=== PATIENT | female | born 1950 | race Caucasian/White ===

== ENCOUNTER 2018-09-11 01:22 | Outpatient (CLI) | payer OTHER, SELFPAY ==
[2018-09-11 10:59] LABS: HCT 42.2 % (36.0-46.0); HGB 14.1 g/dL (12.0-15.5); Mean Corp. HGB Concentration 33.4 g/dL (32.0-36.0); Mean Corpuscular Hemoglobin 32.3 pg (27.0-33.0); Mean Corpuscular Volume 96.6 fL (80-95); Platelet Count 289 x1000/uL (130-400); RBC 4.37 m/cumm (4.00-5.20); RBC Distribution Width 12.5 % (11.7-14.6); White Blood Cell Count 5.96 k/cumm (4.4-10.8)
[2018-09-11 11:24] LABS: ALT 18 U/L (12-78); AST 8 U/L (15-37); Albumin 3.6 g/dL (3.4-5.0); Alkaline Phosphatase 56 U/L (46-116); Anion Gap 8.9 mmol/L (3-11); BUN 19 mg/dL (7-18); Bilirubin, Total 0.5 mg/dL (0.2-1.0); CO2 26.1 mmol/L (21.0-32.0); CREATININE 0.76 mg/dL (0.55-1.02); Calcium 8.6 mg/dL (8.5-10.1); Chloride 108 mmol/L (98-107); Cholesterol 209 mg/dL (50-200); Glucose 96 mg/dL (70-100); HDL Cholesterol 57 mg/dL (40-60); LDL CHOLESTEROL 145 mg/dL (<100); Potassium 4.1 mmol/L (3.5-5.1); Sodium 143 mmol/L (136-145); TSH (W/Ref FT4) 0.72 uIU/mL (0.358-3.74); Total Protein 6.3 g/dL (6.4-8.2); Triglyceride 60 mg/dL (30-150)
== END 2018-09-11 01:42 ==
PROVIDERS: PCP Family Medicine; Visit Provider Family Medicine
DX: I10 Essential (primary) hypertension (principal); E05.00 Thyrotoxicosis with diffuse goiter without thyrotoxic crisis or storm
CPT/HCPCS: 36415; 80053; 80061; 83721; 85027; 84443

== ENCOUNTER 2019-05-21 14:43 | Emergency (ER) | payer OTHER, SELFPAY ==
[2019-05-21 14:47] VITALS: BP 145/80; PULSE 82; RESP 16; TEMP 36.5; O2SAT 95
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
--- NOTE | 2019-05-21 15:54 | DI.RAD_ITS ---
SYMPTOMS/DIAGNOSIS: BACK PAIN, L3-5 TENDERNESS LUMBAR SPINE: Comparison is made with November,. There is a stable mild L1 compression fracture. No additional fractures are seen. The alignment appears normal. There are degenerative disc changes, greatest at L2-3 where there is also slight scoliosis. IMPRESSION: Stable mild L1 compression fracture. No new abnormality.
[2019-05-21 16:33] VITALS: BP 145/80; PULSE 82; RESP 16; TEMP 36.5; O2SAT 95
== END 2019-05-21 16:32 | disposition home or self-care (01) ==
PROVIDERS: Emergency Provider Physician Assistant; PCP Family Medicine
DX: M54.5 Low back pain (principal); M48.52XA Collapsed vertebra, not elsewhere classified, cervical region, initial encounter for fracture
CPT/HCPCS: 99283; 72110; 99282

== ENCOUNTER 2019-07-30 00:47 | Outpatient (CLI) | payer OTHER, SELFPAY ==
[2019-07-30 11:23] LABS: ALT 20 U/L (14-59); AST 13 U/L (15-37); Albumin 3.6 g/dL (3.4-5.0); Alkaline Phosphatase 64 U/L (46-116); Anion Gap 7.1 mmol/L (3-11); BUN 20 mg/dL (7-18); Bilirubin, Total 0.3 mg/dL (0.2-1.0); CO2 27.9 mmol/L (21.0-32.0); CREATININE 0.88 mg/dL (0.55-1.02); Calcium 8.4 mg/dL (8.5-10.1); Chloride 110 mmol/L (98-107); Glucose 93 mg/dL (70-100); Potassium 4.9 mmol/L (3.5-5.1); Sodium 145 mmol/L (136-145); Total Protein 6.4 g/dL (6.4-8.2)
[2019-07-30 13:36] LABS: TSH (W/Ref FT4) 0.48 uIU/mL (0.36-3.74)
[2019-08-01 05:47] LABS: Vitamin D 25 Total 54.6 ng/ml (30-100)
== END 2019-07-30 01:07 ==
PROVIDERS: PCP Family Medicine; Visit Provider Family Medicine
DX: F32.9 Major depressive disorder, single episode, unspecified (principal); M81.0 Age-related osteoporosis without current pathological fracture; E05.00 Thyrotoxicosis with diffuse goiter without thyrotoxic crisis or storm
CPT/HCPCS: 36415; 80053; 82306; 84443

== ENCOUNTER 2019-12-03 01:31 | Outpatient (CLI) | payer OTHER, SELFPAY ==
--- NOTE | 2019-12-03 16:27 | DI.DEXA_ITS ---
EXAM: XR DEXA BONE DENSITY W/WO DEE INDICATION: osteoporosis M81.0, H/O FX IN 2018 COMPARISON: XR lumbar spine complete from 05/21/2019 TECHNIQUE: 2D digital imaging was performed. FINDINGS: The lateral view of the spine shows no compression deformities. Evaluation of the left hip shows a total T-score of -3.4 and a Z-score of -1.8. This is consistent w ith osteoporosis and a high fracture risk. This compares to a total T-score of -3.1 from 2018. Evaluation of the lumbar spine shows a total T-score of -3.7 and a Z-score of -1.5. This is also con sistent with osteoporosis and a high fracture risk. This compares to a total T-score of -3.8 from . IMPRESSION: Osteoporosis.
== END 2019-12-03 01:51 ==
PROVIDERS: PCP Family Medicine; Visit Provider Family Medicine
DX: M81.0 Age-related osteoporosis without current pathological fracture (principal)
CPT/HCPCS: 77080

== ENCOUNTER 2020-09-17 13:32 | Outpatient (CLI) | payer OTHER, SELFPAY ==
--- NOTE | 2020-09-17 10:45 | DI.RAD_ITS ---
EXAM: XR THORACIC SPINE COMPLETE CLINICAL HISTORY: Pain after lifting, back pain with radiation, M54.9 dorsalgia TECHNIQUE: COMPARISON: No exams were available for comparison FINDINGS: Two views were obtained. There are mild anterior compression fractures of what appear to be the vert ebral bodies of T7 and T8 with mild loss of height anteriorly, these mild compression fractures are o f uncertain age. There is also mild anterior compression fracture of L1 vertebral body. No additional significant findings apart from mild biconvex thoracolumbar scoliosis and mild degenera tive changes of the thoracic and upper lumbar Spine. IMPRESSION: Mild anterior compression fractures, T7, T8, and L1, fractures are of uncertain age. RADIATION DOSE DELIVERED: Total DLP
== END 2020-09-17 13:52 ==
PROVIDERS: PCP Family Medicine; Visit Provider Nurse Practitioner Family
DX: M48.54XA Collapsed vertebra, not elsewhere classified, thoracic region, initial encounter for fracture (principal); M48.56XA Collapsed vertebra, not elsewhere classified, lumbar region, initial encounter for fracture
CPT/HCPCS: 72072

== ENCOUNTER 2021-04-02 01:39 | Outpatient (CLI) | payer OTHER, SELFPAY ==
[2021-04-02 13:10] LABS: Calculated LDL 161 mg/dL (<100); Cholesterol 234 mg/dL (<200); HDL Cholesterol 60 mg/dL (40-60); Triglyceride 68 mg/dL (<150)
[2021-04-02 13:42] LABS: TSH 0.55 uIU/mL (0.36-3.74)
== END 2021-04-02 01:40 | disposition home or self-care (01) ==
LOC: LOS 01:39
PROVIDERS: Family Medicine; Nurse Practitioner Family; PCP Family Medicine; Visit Provider Nurse Practitioner
DX: E78.5 Hyperlipidemia, unspecified (principal); E05.00 Thyrotoxicosis with diffuse goiter without thyrotoxic crisis or storm
CPT/HCPCS: 36415; 80061; 84443

== ENCOUNTER 2021-04-13 01:34 | Outpatient (CLI) | payer OTHER, SELFPAY ==
--- NOTE | 2021-04-13 08:30 | DI.MAMMO_ITS ---
Exam(s) MAMMO SCREENING EXAM: MAMMO SCREENING CLINICAL HISTORY: screening mammo Z12.39 TECHNIQUE: Mammograms were interpreted according to the usual protocol including computer analysis w Disconnect CAD system, tomosynthesis and C-view imaging. COMPARISON: 2012 through 2018 FINDINGS: The breasts are composed of heterogeneously dense fibroglandular densities, Breast Density category C . No suspicious masses or suspicious microcalcifications are seen. Stable circumscribed nodule medial subareolar left breast. Vascular calcifications. No skin thickening or abnormal axillary lymph nodes are seen. There has been no significant change from prior exams. IMPRESSION: BI-RADS Cat 2 - Benign Findings Yearly screening mammography is recommended. Breast Density Category C, heterogeneously Dense. The mammogram demonstrates the patient's breast tissue is dense. Dense breast tissue is very common a nd is not abnormal but dense breast tissue can make it harder to find cancer on a mammogram. Also, de nse breast tissue may increase breast cancer risk. This information about the result of the mammogram report was provided to the patient to raise their awareness. Use this report when you speak with the patient about their risks for breast cancer, which includes their family history. At that time, you may recommend additional screening tests (Ultrasound or MRI) as they might be useful based on their r isk. A negative radiographic report should not delay biopsy if a dominant or clinically suspicious mass is present. Up to ten percent of cancers are not identified on mammography. A negative report may reinforce clinical impression. Adenosis and dense breasts may obscure an underlying neoplasm. False positive reports average 6 to 10%.
== END 2021-04-13 01:54 ==
PROVIDERS: PCP Nurse Practitioner; Visit Provider Nurse Practitioner
DX: Z12.31 Encounter for screening mammogram for malignant neoplasm of breast (principal)
CPT/HCPCS: 77063; 77067

== ENCOUNTER 2021-08-25 16:12 | Emergency (ER) | payer OTHER, SELFPAY ==
[2021-08-25 16:15] VITALS: BP 167/82; PULSE 91; RESP 16; TEMP 37.2; O2SAT 99
--- NOTE | 2021-08-25 17:00 | DI.RAD_ITS ---
Exam(s) XR THORACIC SPINE COMPLETE EXAM: XR THORACIC SPINE COMPLETE CLINICAL HISTORY: mid upper back pain, r/o fracture. TECHNIQUE: 2D digital imaging was performed of the thoracic spine. Views were obtained. AP, swimm er's and lateral views were obtained. COMPARISON: CR XR THORACIC SPINE COMPLETE from 09/17/2020 FINDINGS: BONES: There is stable old compression deformities of T7, T8 and L1. No acute fracture are identifie d. The bones are osteopenic. The vertebral bodies and posterior elements are unremarkable. DISKS:There is a very mild S-type thoracolumbar scoliosis. Interverebral disc spaces are maintained. SOFT TISSUE: Visualized lungs are clear. IMPRESSION: 1. No acute fractures or subluxations in the thoracic spine. 2. Stable old T7, T8 and L1 compression deformities. DATA REPOSITORY: RADIATION DOSE DELIVERED:
--- NOTE | 2021-08-25 17:10 | ED.GENADUL_ITS ---
Discharge Plan Disposition Patient Disposition: HOME Condition: Stable Discharge Details Clinical Impression: Acute thoracic myofascial strain Primary Care Provider: Lacy Silva ED Provider: Linda Dumas Home Meds and New Rx's Prescriptions: New methocarbamol 500 mg tablet 500 mg PO Q6H PRN (Reason: muscle spasm) Qty: 14 RF: 0 Continued [facility] PO DAILY RF: 0 Osteo [facility] Health PO DAILY RF: 0 SeroPlus PO DAILY RF: 0 ascorbic acid (vitamin C) 1,000 MG tablet 1,000 mg PO DAILY RF: 0 One-Per-Day [place]-3 1 EACH capsule,delayed release(DR/EC) 600 - 1,200 mg PO as directed RF: 0 cholecalciferol (vitamin D3) 25 mcg (1,000 unit) capsule 5,000 unit PO DAILY RF: 0 cyanocobalamin (vitamin B-12) [Vitamin B-12] 1,000 mcg tablet 2,000 mcg PO DAILY RF: 0 escitalopram oxalate [Lexapro] 10 mg tablet 10 mg PO DAILY Qty: 90 RF: 3 Bone Essentials 166.75 mg- 166.75 unit Capsule 1 tab PO ONCE RF: 0 Discharge Instructions Instructions: Thoracic Back Strain (ED) Additional Instructions: Alternate ice and heat to the affected area(s) several times daily for 20 minutes at a time. Alternate tylenol and motrin as needed and directed for pain. A prescription for muscle relaxer was sent electronically to your pharmacy. Follow-up with your primary care doctor in 1 week. Return to the emergency department with any worsening or new concerning symptoms such as worsening pain, extremity weakness or numbness, chest pain, difficulty breathing or any other concerns. Discharge Data Discharge Date/Time-TO BE ENTERED AT DEPARTURE: 08/25/21 19:27 Discharge Physician: Linda Dumas Medical Decision Making 71yo F with a history of T7 and T8 compression fractures in August 2020 presents with midline upper back pain similar to pain she had with her thoracic compression fractures since his Patient appears somewhat uncomfortable but nontoxic. She has tenderness to palpation to her midline thoracic spine. No significant paraspinal tenderness. Neurovascularly intact. No focal deficits. No overlying signs of trauma or cellulitis. Patient took Tylenol and ibuprofen prior to arrival and is declining any additional pain medication. She states she is mainly concerned about repeat T- spine compression fractures. Will obtain a thoracic spine x-ray. X-rays reviewed and negative for acute findings. Patient again denies any chest or abdominal pain or difficulty breathing and states her pain feels similar to when she had her thoracic compression fractures last year. She was offered CT imaging but declines. Her pain is reproducible with palpation and movement and appears musculoskeletal. History and presentation does not appear consistent with ACS, PE, dissection or disc herniation. Discussed that her symptoms could be due to muscular strain in the setting of osteoporosis and chronic pain related to her old compression fractures. Patient advised to follow-up with her PCP for reevaluation. A prescription for methocarbamol was sent electronically to her pharmacy. Usual and customary return precautions given prior to discharge. Medical Records Medical records reviewed: Yes I reviewed the patient's medical records. Imaging Data Radiologic Study: Radiologist's impression: XR Thoracic Spine Exam date and time: 08/25/2021 5:12 PM Age: 71 years old Clinical indication: Pain in thoracic spine; Patient HX: Mid to upper back pain R/O fracture; Additional info: Aoi t7 t8 patient has had prior compression FX TECHNIQUE: Imaging protocol: XR of the thoracic spine. Views: 3 views. COMPARISON: CR XR THORACIC SPINE COMPLETE 09/17/2020 11:06 AM FINDINGS: Bones/joints: There is mild rightward curvature of the thoracic and lumbar spines as seen on AP view. Again seen is grossly stable anterior height loss of the T7 and T8 vertebral bodies. There is stable mild anterior height loss of the L1 vertebral body. Otherwise, vertebral body heights are well maintained. There is accentuation of the normal thoracic kyphosis. No definite acute osseous injury or underlying osseous mass. Soft tissues: Unremarkable. IMPRESSION: 1. Stable study. 2. Anterior height loss of the T7, T8 and L1 vertebral bodies consistent with old compression fractures. Lab Data Lab results reviewed: Yes I reviewed the patient's lab results. HPI General Mode of arrival: ambulatory . Date/Time Provider Initiated Documentation: 08/25/21 16:21 . Limitations to Documentation: no limitations . Information obtained by: patient . HPI Narrative: Pt is a 71yo F with a history of T7 and T8 compression fractures in August 2020 who presents to the ED w/ a c/o midline upper back pain since this morning. Patient states she was carrying a few bags yesterday approximately 30 pounds each which may have caused an injury but she denies any acute pain at that time. She states her initial injury in August 2020 resulted from carrying a heavy object awkwardly. She states her friend who works in physical therapy pressed on her back today which caused some relief of her pain. She states she took ibuprofen and Tylenol today with some relief. She states she is mainly concerned that she is a new fracture in this area today. She denies any radiation of pain or numbness in her arms or legs. Related Data Home Medications Medication Instructions Recorded Confirmed ascorbic acid (vitamin C) 1,000 mg PO DAILY 07/06/13 08/25/21 One-Per-Day [place]-3 600 - 1,200 mg PO as directed 11/19/15 08/25/21 Bone Essentials 1 tab PO ONCE 05/21/19 09/17/20 [facility] PO DAILY 10/19/20 10/19/20 [facility]o Bone Health PO DAILY 10/19/20 10/19/20 SeroPlus PO DAILY 10/19/20 10/19/20 cholecalciferol (vitamin D3) 25 5,000 unit PO DAILY cap 10/19/20 08/25/21 mcg (1,000 unit) capsule cyanocobalamin (vitamin B-12) 2,000 mcg PO DAILY tab 10/19/20 08/25/21 1,000 mcg tablet escitalopram oxalate 10 mg tablet 10 mg PO DAILY #90 tab-cap 11/09/20 08/25/21 methocarbamol 500 mg PO Q6H PRN #14 tab 08/25/21 Previous Rx's Medication Instructions Recorded escitalopram oxalate 10 mg tablet 10 mg PO DAILY #90 tab-cap 11/09/20 methocarbamol 500 mg PO Q6H PRN #14 tab 08/25/21 Allergies Allergy/AdvReac Type Severity Reaction Status Date / Time gluten Allergy Severe SWELLING Verified 08/25/21 16:21 lactose AdvReac Unknown INTOLERANT Verified 08/25/21 16:21 EGG WHITE AdvReac Unknown PUTS HER Uncoded 08/25/21 16:21 TO SLEEP General Stated Complaint: Nk/Back Pain EILEEN: 3 Review of Systems All systems reviewed & are unremarkable except as noted in HPI and below Constitutional Constitutional: Reports as per HPI, Denies chills and Denies fever(s) Eyes Eyes: Denies blurry vision ENT Ears, Nose, Mouth, and Throat: Denies dizziness, Denies sore throat and Denies throat swelling Cardiovascular Cardiovascular: Denies chest pain and Denies dyspnea Respiratory Respiratory: Denies cough and Denies dyspnea Gastrointestinal Gastrointestinal: Denies abdominal pain, Denies diarrhea and Denies vomiting Genitourinary Genitourinary: Denies hematuria and Denies dysuria Musculoskeletal Musculoskeletal: Reports back pain and Denies numbness Integumentary/Breasts Skin/Breast: Denies lesions and Denies rash Neurologic Neurologic: Denies dizziness, Denies localized weakness and Denies numbness Allergic/Immunologic Allergic/Immunologic: Denies throat swelling [facility] Medical History (Updated 08/25/21 @ 19:11 by Linda Dumas DO) Back pain with radiation Chronic low back pain Compression fracture of lumbar vertebra with routine healing (11/23/15) History of Graves' disease (12/05/17) History of vertebral compression fracture (12/05/17) Hyperlipidemia Surgical History (Updated 04/06/21 @ 09:43 by Lacy Silva NP) History of bilateral ligation of fallopian tubes Ligation of fallopian tube (~1975) Family History (Updated 04/12/21 @ 09:48 by Rani Rod) Mother , age 44 Breast cancer Father , age 84 Heart disease Colon cancer Brother Heart disease Depression Brother Essential hypertension Depression Maternal Grandfather Depression Alcohol abuse Paternal Grandfather , in his 80s No problems noted. Maternal Grandmother , age 75 No problems noted. Paternal Grandmother , age 95 Heart disease Stroke Son No problems noted. Daughter Melanoma Daughter No problems noted. Daughter Depression Alcohol abuse Social History (Updated 04/12/21 @ 09:47 by Rani Rod) Smoking/Tobacco Use Status: Never Second Hand Exposure: Yes Smoking risk assessment performed?: Yes Alcohol Intake: current Alcohol Intake frequency: a few times a week Alcohol type: hard liquor Drug use: Never Substance use type: does not use Caregiver/Support person: No Household members: none Housing: house Communication Needs: None Do you need help understanding health information?: Never Pets and animals: Yes Pets and animals: cat(s) and dog(s) Sexually active: No Do you think of yourself as: straight/heterosexual Current gender identity: female What is your relationship status?: How often do you talk on the phone with friends or family?: decline to answer How often do you get together with friends or relatives?: three or more times per week How often do you attend spiritism or temple services?: decline to answer Do you belong to any clubs or organized social groups?: no Panel score (0-1 are the most socially isolated patients): 1 What type of physical activity do you participate in: walking and other Details: Pilates, snowshoeing Duration: 30-45 minutes/day Frequency: 5-6 times per week Shawanda/Faith: Church Special shawanda needs: No Seatbelt use: always Helmet use: Yes Helmet use: always Drive intox or ride w/intox hyster driver: No Do you feel safe at home: Yes Do you feel safe in your relationship?: Yes Exam Const General: cooperative, healthy appearing and no acute distress HENMT Head: normal to inspection Face and sinus: normal facial exam Eyes General: appearance normal, both eyes and all related structures EOM: EOM intact bilaterally Neck Neck: normal visual inspection and No submandibular swelling Lymphatic: no lymphadenopathy noted Chest Chest: normal inspection of the chest and no tenderness Resp Effort & Inspection: normal respiratory effort and able to speak in complete sentences Auscultation: clear to auscultation bilaterally Cardio Rate: regular rate Rhythm: regular rhythm GI Inspection: normal to inspection Palpation: soft, not firm, not rigid and nontender Auscultation: normal bowel sounds Back/Spine/Pelvis Thoracic/Lumbar Spine: thoracic and lumbar spine normal to inspection, No paraspinal tenderness, thoracic spinal tenderness and No lumbar spinal tenderness Pelvis: no pain with anterior-posterior compression Skin General skin exam: no rashes or lesions noted Neuro General: patient alert, patient awake and patient oriented x3 Cognition: normal cognition Speech: speech normal Motor: muscle tone normal throughout and strength 5/5 throughout Sensory Exam: no sensory deficits noted Other: MS 5/5 b/l UE/LE. Extrem General: normal to inspection, full ROM, capillary refill normal, no calf tenderness bilaterally and no edema Other: Bilateral upper and lower distal extremity pulses intact. Psych Appearance: grossly normal Mental Status: mental status grossly normal Speech and Movement: speech and movement normal Affect: normal affect Course Vital Signs Vital signs: Vital Signs Temperature 99.0 F 08/25/21 16:15 Pulse 91 H 08/25/21 16:15 Respiratory Rate 16 08/25/21 16:15 Blood Pressure 167/82 H 08/25/21 16:15 Pulse Oximetry 99 08/25/21 16:15 Temperature 99.0 F 08/25/21 16:15 Temperature Source Skin 08/25/21 16:15 Pulse 91 H 08/25/21 16:15 Respiratory Rate 16 08/25/21 16:15 Respiratory Effort Non-Labored 08/25/21 16:15 Blood Pressure 167/82 H 08/25/21 16:15 Blood Pressure Position Sitting 08/25/21 16:15 Pulse Oximetry 99 08/25/21 16:15 Oxygen Delivery Method Room Air 08/25/21 16:15 Oxygen Flow Rate 0 08/25/21 16:15 Pain Level 3 08/25/21 16:30 PAWSS Have you Been Recently Intoxicated or Drunk Within the Last 30 days?: No Have you Ever Experienced Previous Episodes of Alcohol Withdrawal?: No Have you ever Experienced Withdrawal Seizures?: No Have you ever Experienced Delirium Tremens(DT)s?: No Have you ever undergone Alcohol Rehabilitation Treatment (i.e, inpt ot outpatient treatment programs)?: No Have you ever Experienced Blackouts?: No Have you ever Combined Alcohol with other Downers within the last 90 days?: No Have you ever Combined Alcohol with any other Substance of Abuse during the last 90 days?: No Positive Blood Alcohol level on Presentation? [PCS.BAL]: No Evidence of Increased Autonomic Activity (i.e. HR>120, tremor, sweating, agitation, nausea)?: No Result: 0
[2021-08-25 17:33] VITALS: BP 142/82; PULSE 71; TEMP 36.5; O2SAT 98
--- NOTE | 2021-08-25 18:59 | DI.VRAD_ITS ---
PROCEDURE INFORMATION: Exam: XR Thoracic Spine Exam date and time: 08/25/2021 5:12 PM Age: 71 years old Clinical indication: Pain in thoracic spine; Patient HX: Mid to upper back pain R/O fracture; Additional info: Aoi t7 t8 patient has had prior compression FX TECHNIQUE: Imaging protocol: XR of the thoracic spine. Views: 3 views. COMPARISON: CR XR THORACIC SPINE COMPLETE 09/17/2020 11:06 AM FINDINGS: Bones/joints: There is mild rightward curvature of the thoracic and lumbar spines as seen on AP view. Again seen is grossly stable anterior height loss of the T7 and T8 vertebral bodies. There is stable mild anterior height loss of the L1 vertebral body. Otherwise, vertebral body heights are well maintained. There is accentuation of the normal thoracic kyphosis. No definite acute osseous injury or underlying osseous mass. Soft tissues: Unremarkable. IMPRESSION: 1. Stable study. 2. Anterior height loss of the T7, T8 and L1 vertebral bodies consistent with old compression fractures. Dictated and Authenticated by: Magdaleno Padron MD. Ordering:PEDRO Mckeon MD
[2021-08-25 19:20] VITALS: BP 156/96; PULSE 77; TEMP 36.6; O2SAT 97
== END 2021-08-25 19:27 | disposition home or self-care (01) ==
PROVIDERS: Emergency Provider Physician Assistant; PCP Nurse Practitioner
DX: S29.012A Strain of muscle and tendon of back wall of thorax, initial encounter (principal); X58.XXXA Exposure to other specified factors, initial encounter
CPT/HCPCS: 99283; 72072

== ENCOUNTER 2021-08-27 13:21 | Emergency (ER) | payer OTHER, SELFPAY ==
[2021-08-27 13:29] VITALS: BP 133/101; PULSE 70; RESP 16; TEMP 36.3; O2SAT 96
--- NOTE | 2021-08-27 13:40 | W.ED.GENAD ---
Discharge Plan Disposition Patient Disposition: HOME Condition: Stable Discharge Details Clinical Impression: Upper back pain Primary Care Provider: Lacy Silva ED Provider: Leopoldo He Home Meds and New Rx's Prescriptions: Continued New Chapter Bone Health PO DAILY RF: 0 Osteo Bone Health PO DAILY RF: 0 SeroPlus PO DAILY RF: 0 ascorbic acid (vitamin C) 1,000 MG tablet 1,000 mg PO DAILY RF: 0 One-Per-Day [place]-3 1 EACH capsule,delayed release(DR/EC) 600 - 1,200 mg PO as directed RF: 0 cholecalciferol (vitamin D3) 25 mcg (1,000 unit) capsule 5,000 unit PO DAILY RF: 0 cyanocobalamin (vitamin B-12) [Vitamin B-12] 1,000 mcg tablet 2,000 mcg PO DAILY RF: 0 escitalopram oxalate [Lexapro] 10 mg tablet 10 mg PO DAILY Qty: 90 RF: 3 acetaminophen 325 mg Tablet 325 mg PO ONCE RF: 0 ibuprofen [Advil] 200 mg Tablet 200 mg PO Q6H PRNRF: 0 Bone Essentials 166.75 mg- 166.75 unit Capsule 1 tab PO ONCE RF: 0 methocarbamol 500 mg tablet 500 mg PO Q6H PRN (Reason: muscle spasm) Qty: 14 RF: 0 Discharge Instructions Instructions: Back Pain (ED) Additional Instructions: At this time your CT imaging does not reveal any acute fracture. We discussed further work-up for evaluation of other etiology other than musculoskeletal such as atypical chest pain, PE, dissection, etc. and you have declined. You have also declined any additional analgesia. Please watch for new or worsening symptoms and return to the ER for any concerns. Otherwise please contact your primary care provider later today or on Monday to discuss your reoccurring ER visits and need for outpatient reevaluation Discharge Data Discharge Date/Time-TO BE ENTERED AT DEPARTURE: 08/27/21 15:44 Medical Decision Making 71-year-old female, Roby history of osteoporosis, presents to the ER requesting a CT scan which she declined from her last visit. At that time she only wanted an x-ray but reports that her pain is worsening, not improving whatsoever, and she wants to know if she has additional compression fractures. She declines any additional analgesia. Although clinically this certainly could be musculoskeletal in nature given her age, I am concerned of atypical chest pain, PE, dissection, etc. These concerns are lower on the differential however I do feel as though it is prudent to rule these out given her her pain is not improving with conservative therapy. Patient understands this but declines additional work-up and only wants a CT of her spine. Patient does understand that these diagnoses can be life-threatening but she states that she knows this is musculoskeletal and only wants a CT. She is agreeable to return to the ER for new or worsening symptoms or continued follow-up through her primary care provider. Patient is of sound mind and has the right to refuse additional work-up. CT imaging read by radiology as no acute fracture, although she does have multiple old compression fractures. Discussed CT findings with patient. She is surprised given her discomfort. I once again spoke with her regarding her discomfort, no acute fracture, and concern for other etiology. Nonetheless she appreciates my concern, she states that she is considered musculoskeletal and declines additional work-up such as IV, laboratory values, EKG, additional imaging. Strict discharge and return precautions provided. This documentation was generated using [employer] dictation system, please disregard any oddities of phrase or misspellings. Medical Records Medical records reviewed: Yes I reviewed the patient's medical records. Imaging Data Radiologic Study: Attestation: I personally reviewed and interpreted this imaging study as follows: Imaging: CT Scan Radiologist's impression: CT THORACIC LUMBAR SPINE WO CLINICAL HISTORY Pain, hx of osteoporosis, compression fracture TECHNIQUE [] COMPARISON [CR XR lumbar spine complete from 05/21/2019 CR XR DEXA BONE DENSITY W/WO DEE from 12/03/2019 CR XR DEXA BONE DENSITY W/WO DEE from 12/03/2019 CR XR THORACIC SPINE COMPLETE from 09/17/2020 CR XR THORACIC SPINE COMPLETE from 09/17/2020 CR,XR XR THORACIC SPINE COMPLETE from 08/25/2021 CR,XR XR THORACIC SPINE COMPLETE from 08/25/2021 ] FINDINGS [CT examination of thoracic lumbar spine was performed utilizing multi slice acquisition reconstruction. Visualized portions of the lungs appear clear. There appear to be multiple hepatic cysts and benign hepatic calcifications. Visualized portions the spleen are unremarkable. Visualized portions of right kidney unremarkable. There is nonobstructing left renal calcification. Abdominal aorta is diameter. There are vertebral endplate compression fractures 1, L3, and L4 with slight loss of height anteriorly of L1 vertebral body. There are mild anterior vertebral compression fractures of T 7, T8 and T9 which were probably present on prior examination of August 2020.] no new compression fracture seen. No deformity of the spinal. No paraspinal soft tissue. IMPRESSION [Multiple old compression fractures of thoracic and lumbar spine as described above. No evidence of acute process.] HPI General Mode of arrival: ambulatory. Date/Time Provider Initiated Documentation: 08/27/21 13:36. Limitations to Documentation: no limitations. Information obtained by: patient. HPI Narrative: This is a 71-year-old female, reports past history of osteoporosis, both thoracic and lumbar compression fractures as recent as 2019, hyperlipidemia, Graves' disease, presenting to the ER today for ongoing back pain, requesting CT imaging which she declined it during her last visit. Patient is unsure of any obvious trauma but does state that she was carrying heavy bags. When she was seen in the ER on 08-25, x-rays did not reveal any acute fractures and plan was for disposition with primary care follow-up, given a prescription of methocarbamol, and she was to use [id number] medications which she has been without significant relief of her discomfort. Patient reports the pain is moderate at rest worse with movement. She denies any fever, headache, neck pain, chest pain, shortness of breath, abdominal pain, nausea, vomiting Related Data Home Medications Medication Instructions Recorded Confirmed ascorbic acid (vitamin C) 1,000 mg PO DAILY 07/06/13 08/27/21 One-Per-Day Norwood-3 600 - 1,200 mg PO as directed 11/19/15 08/27/21 Bone Essentials 1 tab PO ONCE 05/21/19 08/27/21 New Chapter Bone Health PO DAILY 10/19/20 10/19/20 Osteo Bone Health PO DAILY 10/19/20 10/19/20 SeroPlus PO DAILY 10/19/20 10/19/20 cholecalciferol (vitamin D3) 25 5,000 unit PO DAILY cap 10/19/20 08/27/21 mcg (1,000 unit) capsule cyanocobalamin (vitamin B-12) 2,000 mcg PO DAILY tab 10/19/20 08/27/21 1,000 mcg tablet escitalopram oxalate 10 mg tablet 10 mg PO DAILY #90 tab-cap 11/09/20 08/27/21 methocarbamol 500 mg PO Q6H PRN #14 tab 08/25/21 08/27/21 acetaminophen 325 mg PO ONCE 08/27/21 08/27/21 ibuprofen [Advil] 200 mg PO Q6H PRN 08/27/21 08/27/21 Previous Rx's Medication Instructions Recorded escitalopram oxalate 10 mg tablet 10 mg PO DAILY #90 tab-cap 11/09/20 methocarbamol 500 mg PO Q6H PRN #14 tab 08/25/21 Allergies Allergy/AdvReac Type Severity Reaction Status Date / Time gluten Allergy Severe SWELLING Verified 08/27/21 13:31 lactose AdvReac Unknown INTOLERANT Verified 08/27/21 13:31 EGG WHITE AdvReac Unknown PUTS HER Uncoded 08/27/21 13:31 TO SLEEP General Stated Complaint: Nk/Back Pain EILEEN: 3 Review of Systems Constitutional Constitutional: Denies fever(s) ENT Ears, Nose, Mouth, and Throat: Denies neck pain Cardiovascular Cardiovascular: Denies chest pain and Denies dyspnea Respiratory Respiratory: Denies cough and Denies dyspnea Gastrointestinal Gastrointestinal: Denies abdominal pain, Denies nausea and Denies vomiting Genitourinary Genitourinary: Denies dysuria Musculoskeletal Musculoskeletal: Reports back pain, Denies neck pain, Denies numbness, Denies stiffness and Denies tingling Integumentary/Breasts Skin/Breast: Denies rash Neurologic Neurologic: Denies numbness and Denies tingling PFSH Medical History Back pain with radiation Chronic low back pain Compression fracture of lumbar vertebra with routine healing (11/23/15) History of Graves' disease (12/05/17) History of vertebral compression fracture (12/05/17) Hyperlipidemia Surgical History History of bilateral ligation of fallopian tubes Ligation of fallopian tube (~1975) Family History Mother , age 44 Breast cancer Father , age 84 Heart disease Colon cancer Brother Heart disease Depression Brother Essential hypertension Depression Maternal Grandfather Depression Alcohol abuse Paternal Grandfather , in his 80s No problems noted. Maternal Grandmother , age 75 No problems noted. Paternal Grandmother , age 95 Heart disease Stroke Son No problems noted. Daughter Melanoma Daughter No problems noted. Daughter Depression Alcohol abuse Social History Smoking/Tobacco Use Status: Never Second Hand Exposure: Yes Smoking risk assessment performed?: Yes Alcohol Intake: current Alcohol Intake frequency: a few times a week Alcohol type: hard liquor Drug use: Never Substance use type: does not use Caregiver/Support person: No Household members: none Housing: house Communication Needs: None Do you need help understanding health information?: Never Pets and animals: Yes Pets and animals: cat(s) and dog(s) Sexually active: No Do you think of yourself as: straight/heterosexual Current gender identity: female What is your relationship status?: How often do you talk on the phone with friends or family?: decline to answer How often do you get together with friends or relatives?: three or more times per week How often do you attend buddhist or hoahaoism services?: decline to answer Do you belong to any clubs or organized social groups?: no Panel score (0-1 are the most socially isolated patients): 1 What type of physical activity do you participate in: walking and other Details: Pilates, snowshoeing Duration: 30-45 minutes/day Frequency: 5-6 times per week Shawanda/Hindu: Caodaism Special shawanda needs: No Seatbelt use: always Helmet use: Yes Helmet use: always Drive intox or ride w/intox driver/sales workers: No Do you feel safe at home: Yes Do you feel safe in your relationship?: Yes Exam Const General: cooperative, healthy appearing, comfortable and no acute distress Orientation: alert, awake and oriented x3 [facility] Head: normal to inspection, normocephalic and atraumatic Eyes General: appearance normal, both eyes and all related structures Conjunctivae: conjunctivae normal Neck Neck: normal visual inspection, full ROM, trachea midline, supple and nontender Resp Effort & Inspection: normal respiratory effort and able to speak in complete sentences Auscultation: clear to auscultation bilaterally Cardio Rate: regular rate Rhythm: regular rhythm GI Palpation: soft, not firm, no guarding, no pulsatile masses and nontender Auscultation: normal bowel sounds Back/Spine/Pelvis Back: no CVA tenderness Back/spine/pelvis image: 1. Diffuse discomfort, slightly worse on the left and it does appear to be point tenderness from T10 down to T12. There is no erythema, warmth, or spasm appreciated. Skin is intact. Full range of motion. Skin General skin exam: no rashes or lesions noted Neuro General: patient alert, patient awake, patient oriented x3, moves all extremities and no focal motor deficits Cognition: normal cognition Speech: speech normal Gait: normal gait Motor: muscle tone normal throughout and strength 5/5 throughout Sensory Exam: no sensory deficits noted Extrem General: normal to inspection, full ROM, capillary refill normal, no pedal edema and no calf tenderness Psych Appearance: grossly normal Mental Status: mental status grossly normal Course Vital Signs Vital signs: Vital Signs Temperature 36.3 C L 08/27/21 13:29 Pulse 70 08/27/21 13:29 Respiratory Rate 16 08/27/21 13:29 Blood Pressure 133/101 H 08/27/21 13:29 Pulse Oximetry 96 08/27/21 13:29 Temperature 36.3 C L 08/27/21 13:29 Temperature Source Skin 08/27/21 13:29 Pulse 70 08/27/21 13:29 Respiratory Rate 16 08/27/21 13:29 Blood Pressure 133/101 H 08/27/21 13:29 Blood Pressure Position Sitting 08/27/21 13:29 Pulse Oximetry 96 08/27/21 13:29 Oxygen Delivery Method Room Air 08/27/21 13:29 Oxygen Flow Rate 0 08/27/21 13:29 Pain Level 8 08/27/21 13:29
--- NOTE | 2021-08-27 14:38 | DI.CT_ITS ---
Exam(s) CT THORACIC LUMBAR SPINE WO EXAM: CT THORACIC LUMBAR SPINE WO CLINICAL HISTORY: Pain, hx of osteoporosis, compression fracture TECHNIQUE: COMPARISON: CR XR lumbar spine complete from 05/21/2019 CR XR DEXA BONE DENSITY W/WO DEE from 12/03/2019 CR XR DEXA BONE DENSITY W/WO DEE from 12/03/2019 CR XR THORACIC SPINE COMPLETE from 09/17/2020 CR XR THORACIC SPINE COMPLETE from 09/17/2020 CR,XR XR THORACIC SPINE COMPLETE from 08/25/2021 CR,XR XR THORACIC SPINE COMPLETE from 08/25/2021 FINDINGS: CT examination of thoracic lumbar spine was performed utilizing multi slice acquisition reconstructio n. Visualized portions of the lungs appear clear. There appear to be multiple hepatic cysts and consuelo ign hepatic calcifications. Visualized portions the spleen are unremarkable. Visualized portions of right kidney unremarkable. There is nonobstructing left renal calcification. Abdominal aorta is diameter. There are vertebral endplate compression fractures 1, L3, and L4 with slight loss of height anteriorl y of L1 vertebral body. There are mild anterior vertebral compression fractures of T 7, T8 and T9 wh ich were probably present on prior examination of August 2020. no new compression fracture seen. No deformity of the spinal. No paraspinal soft tissue. IMPRESSION: Multiple old compression fractures of thoracic and lumbar spine as described above. No evidence of a cute process. RADIATION DOSE DELIVERED: 739.05mGy.cm Total DLP 11.61mGy CTDIvol RADIATION OPTIMIZATION: All CT scans at this facility use at least one of these dose optimization te chniques: automated exposure control; mA and/or kV adjustment per patient size (includes targeted exa ms where dose is matched to clinical indication); or iterative reconstruction.
== END 2021-08-27 15:44 | disposition home or self-care (01) ==
PROVIDERS: Emergency Provider Physician Assistant; PCP Nurse Practitioner
DX: M54.6 Pain in thoracic spine (principal)
CPT/HCPCS: 99284; 72128; 72131; 99283

== ENCOUNTER 2021-10-23 14:53 | Emergency (ER) | payer MEDICARE, SELFPAY ==
[2021-10-23 14:57] VITALS: BP 142/76; PULSE 96; RESP 16; TEMP 37; O2SAT 97
--- NOTE | 2021-10-23 15:09 | W.ED.GENAD ---
Discharge Plan Disposition Patient Disposition: HOME Condition: Stable Discharge Details Clinical Impression: Acute wrist pain Primary Care Provider: Lacy Silva ED Provider: Divya Bennett Home Meds and New Rx's Prescriptions: Continued New Chapter Bone Health PO DAILY RF: 0 Osteo Bone Health PO DAILY RF: 0 SeroPlus PO DAILY RF: 0 alendronate [Fosamax] 70 mg tablet 70 mg PO QWEEK Qty: 13 RF: 4 ascorbic acid (vitamin C) 1,000 MG tablet 1,000 mg PO DAILY RF: 0 One-Per-Day [place]-3 1 EACH capsule,delayed release(DR/EC) 600 - 1,200 mg PO as directed RF: 0 cholecalciferol (vitamin D3) 25 mcg (1,000 unit) capsule 5,000 unit PO DAILY RF: 0 cyanocobalamin (vitamin B-12) [Vitamin B-12] 1,000 mcg tablet 2,000 mcg PO DAILY RF: 0 methocarbamol 500 mg tablet 500 mg PO Q6H PRN (Reason: muscle spasm) Qty: 30 RF: 2 escitalopram oxalate [Lexapro] 10 mg tablet 10 mg PO DAILY Qty: 90 RF: 3 acetaminophen 325 mg Tablet 325 mg PO ONCE RF: 0 ibuprofen [Advil] 200 mg Tablet 200 mg PO Q6H PRNRF: 0 Bone Essentials 166.75 mg- 166.75 unit Capsule 1 tab PO ONCE RF: 0 Discharge Instructions Instructions: Wrist Injury (ED) Additional Instructions: As we discussed, x-ray is reassuring here today. No evidence of fracture. However, as we discussed, I am concerned that you may have scaphoid injury. I would like you to continue with a thumb spica splint for the next 2 weeks and have repeat imaging. This imaging can be completed. Primary care office. Please call Monday to schedule follow-up appointment. Please encourage rest, ice, elevation. Tylenol and ibuprofen as needed for discomfort. If you develop any new or worsening symptoms please seek care urgently once again. Referrals: Lacy Silva, SHOE MAKER [Primary Care Provider] - Medical Decision Making Patient is a pleasant RHD 71 year old female presenting today with c/c of right wrist pain after FOOSH. States that she was two steps up on a step ladder when she was hurring down and fell. States that she turned so that she was facing the ground when she fell and fell on her outstretched right hand. Hx of osteoporosis. Denies other injiury at the time of the incident. Did not strike her head. No LOC. No radiation of pain. Denies N/T. On exam, patient appears nontoxic and comfortable. She has swelling over distal radius. No pain over the snuff box. No pain with axial thumb loading. 2+ distal pulses. Full ROM of fingers, elbow. No pain in these areas. No palpable or vislbe deformity. Will obtain XR to evaluate for possible fx. While she did not have pain directly over the snuff box, area was close enough that I will obtain navicular views. XR reviewed by radiologist: FINDINGS: Bones/joints: Normal. Soft tissues: Normal. IMPRESSION: No evidence for fracture. Reevaluated the patient. Patient is now tender of the anatomical snuffbox but continues to have no discomfort associated with axial thumb loading. Will place in a thumb spica. Encourage rest, ice, elevation. Tylenol and ibuprofen as needed for discomfort. Advised that she should have repeat imaging in 2 weeks with her primary care. Return precautions were discussed. All of their questions and concerns were addressed in agreement this plan. HPI General Mode of arrival: ambulatory. Date/Time Provider Initiated Documentation: 10/23/21 15:01. Limitations to Documentation: no limitations. Information obtained by: patient and RN notes reviewed. History of Present Illness 71 year old F presents to the emergency department with the chief complaint of right wrist pain, described as moderate, with intensity rated at 5. Quality is described as aching, and is localized to the right and upper extremity. Patient reports no radiation. Patient started experiencing this minute(s) and it has been constant. Immobilization improves symptom(s), Movement worsens symptoms . Patient notes no other symptoms.. Patient did receive the following treatments prior to arrival, none Related Data Home Medications Medication Instructions Recorded Confirmed ascorbic acid (vitamin C) 1,000 mg PO DAILY 07/06/13 10/23/21 One-Per-Day [place]-3 600 - 1,200 mg PO as directed 11/19/15 09/17/21 Bone Essentials 1 tab PO ONCE 05/21/19 09/17/21 New Chapter Bone Health PO DAILY 10/19/20 09/17/21 Osteo Bone Health PO DAILY 10/19/20 09/17/21 SeroPlus PO DAILY 10/19/20 09/17/21 cholecalciferol (vitamin D3) 25 5,000 unit PO DAILY cap 10/19/20 10/23/21 mcg (1,000 unit) capsule cyanocobalamin (vitamin B-12) 2,000 mcg PO DAILY tab 10/19/20 10/23/21 1,000 mcg tablet acetaminophen 325 mg PO ONCE 08/27/21 10/23/21 ibuprofen [Advil] 200 mg PO Q6H PRN 08/27/21 10/23/21 methocarbamol 500 mg tablet 500 mg PO Q6H PRN #30 tab 08/31/21 10/23/21 alendronate 70 mg tablet 70 mg PO QWEEK #13 tab 09/17/21 10/23/21 escitalopram oxalate 10 mg tablet 10 mg PO DAILY #90 tab-cap 09/22/21 10/23/21 Previous Rx's Medication Instructions Recorded methocarbamol 500 mg tablet 500 mg PO Q6H PRN #30 tab 08/31/21 alendronate 70 mg tablet 70 mg PO QWEEK #13 tab 09/17/21 escitalopram oxalate 10 mg tablet 10 mg PO DAILY #90 tab-cap 09/22/21 Allergies Allergy/AdvReac Type Severity Reaction Status Date / Time gluten Allergy Severe SWELLING Verified 10/23/21 15:03 lactose AdvReac Unknown INTOLERANT Verified 10/23/21 15:03 EGG WHITE AdvReac Unknown PUTS HER Uncoded 10/23/21 15:03 TO SLEEP General Stated Complaint: Orthopedic EILEEN: 3 Review of Systems Constitutional Constitutional: Reports as per HPI, Denies chills, Denies fever(s), Denies headache(s) and Denies weakness ENT Ears, Nose, Mouth, and Throat: Denies headache(s) and Denies neck pain Musculoskeletal Musculoskeletal: Reports as per HPI, Reports joint swelling, Reports limited range of motion, Denies neck pain and Denies tingling Integumentary/Breasts Skin/Breast: Reports as per HPI, Denies rash and Denies wounds Neurologic Neurologic: Reports as per HPI, Denies headache(s), Denies tingling, Denies paresthesias and Denies weakness [facility] Active Problem List Upper back pain (Acute) Acute thoracic myofascial strain (Acute) History of Graves' disease (Acute 12/05/17) Hyperlipidemia (Acute) Compression fracture of body of thoracic vertebra (Acute) Chronic low back pain (Acute) Osteoporosis (Acute 12/05/17) Disorder of vitamin B12 (Acute 07/09/13) Depressive disorder (Acute) Atrophic vaginitis (Acute) Medical History Back pain with radiation Compression fracture of lumbar vertebra with routine healing (11/23/15) History of vertebral compression fracture (12/05/17) Surgical History History of bilateral ligation of fallopian tubes Ligation of fallopian tube (~1975) Family History Mother , age 44 Breast cancer Father , age 84 Heart disease Colon cancer Brother Heart disease Depression Brother Essential hypertension Depression Maternal Grandfather Depression Alcohol abuse Paternal Grandfather , in his 80s No problems noted. Maternal Grandmother , age 75 No problems noted. Paternal Grandmother , age 95 Heart disease Stroke Son No problems noted. Daughter Melanoma Daughter No problems noted. Daughter Depression Alcohol abuse Social History Smoking/Tobacco Use Status: Never Second Hand Exposure: Yes Smoking risk assessment performed?: Yes Alcohol Intake: current Alcohol Intake frequency: a few times a week Alcohol type: hard liquor Drug use: Never Substance use type: does not use Caregiver/Support person: No Household members: none Housing: house Communication Needs: None Do you need help understanding health information?: Never Pets and animals: Yes Pets and animals: cat(s) and dog(s) Sexually active: No Do you think of yourself as: straight/heterosexual Current gender identity: female What is your relationship status?: How often do you talk on the phone with friends or family?: decline to answer How often do you get together with friends or relatives?: three or more times per week How often do you attend mormonism or tenriism services?: decline to answer Do you belong to any clubs or organized social groups?: no Panel score (0-1 are the most socially isolated patients): 1 What type of physical activity do you participate in: walking and other Details: Pilates, snowshoeing Duration: 30-45 minutes/day Frequency: 5-6 times per week Shawanda/Yazidism: Spiritism Special shawanda needs: No Seatbelt use: always Helmet use: Yes Helmet use: always Drive intox or ride w/intox route delivery service driver: No Do you feel safe at home: Yes Do you feel safe in your relationship?: Yes Exam Const General: cooperative, healthy appearing, comfortable, no acute distress, well developed and well groomed Nutritional Appearance: average body habitus and well nourished Orientation: alert and awake Neck Neck: normal visual inspection and full ROM Resp Effort & Inspection: normal respiratory effort, able to speak in complete sentences and no respiratory distress Cardio Rate: regular rate Rhythm: regular rhythm Back/Spine/Pelvis Cervical Spine: normal cervical lordosis, cervical ROM normal, No cervical spinal tenderness and No step off deformity Skin General skin exam: no rashes or lesions noted Lesions: no lesions Rashes: no rashes Trauma: no lacerations or abrasions Neuro General: patient alert and patient awake Cognition: normal cognition Speech: speech normal Gait: normal gait Motor: muscle tone normal throughout Sensory Exam: no sensory deficits noted Extrem Hand/finger images: 1. Area of discomfort, swelling. No notable deformity. Patient has no pain with palpation of the shoulder, elbow. Full range of motion of these areas. Sensation in fingers is intact, no pain with palpation of the hand. No pain with axial thumb loading. No pain over the anatomical snuffbox. However, patient does indicate just ulnar to that. Point of maximal discomfort. She does have some Psych Appearance: grossly normal and well kempt Mental Status: mental status grossly normal Speech and Movement: speech and movement normal Course Vital Signs Vital signs: Vital Signs Temperature 37 C 10/23/21 14:57 Pulse 96 H 10/23/21 14:57 Respiratory Rate 16 10/23/21 14:57 Blood Pressure 142/76 H 10/23/21 14:57 Pulse Oximetry 97 10/23/21 14:57 Temperature 37 C 10/23/21 14:57 Temperature Source Temporal Artery Scan 10/23/21 14:57 Pulse 96 H 10/23/21 14:57 Respiratory Rate 16 10/23/21 14:57 Blood Pressure 142/76 H 10/23/21 14:57 Blood Pressure Position Sitting 12/04/21 14:57 Pulse Oximetry 97 10/23/21 14:57 Oxygen Delivery Method Room Air 10/23/21 14:57 Oxygen Flow Rate 0 10/23/21 14:57 Pain Level 5 10/23/21 14:57
--- NOTE | 2021-10-23 15:15 | DI.RAD_ITS ---
Exam(s) XR WRIST RT COMPL NAVICULAR EXAM: XR WRIST RT COMPL NAVICULAR CLINICAL HISTORY: FOOSH. TECHNIQUE: 2D digital imaging was performed. COMPARISON: No exams were available for comparison FINDINGS: There is no evidence of acute fracture or carpal dislocation. No significant ulnar variance. Scapho id unremarkable. Moderate degenerative changes are noted at the 1st carpometacarpal joint. IMPRESSION: No acute fracture. DATA REPOSITORY: RADIATION DOSE DELIVERED:
--- NOTE | 2021-10-23 15:48 | DI.VRAD_ITS ---
PROCEDURE INFORMATION: Exam: XR Right Wrist Exam date and time: 10/23/2021 3:16 PM Age: 71 years old Clinical indication: Other: Foosh TECHNIQUE: Imaging protocol: XR Right wrist. Views: 3 or more views. COMPARISON: CR (PA, WRIST, ) 12/06/2017 1:48 PM FINDINGS: Bones/joints: Normal. Soft tissues: Normal. IMPRESSION: No evidence for fracture. Dictated and Authenticated by: Brianne Rivera MD. Ordering:FELIPE Stokes MD
== END 2021-10-23 16:03 | disposition home or self-care (01) ==
PROVIDERS: Emergency Provider Physician Assistant; PCP Nurse Practitioner
DX: M25.531 Pain in right wrist (principal); W11.XXXA Fall on and from ladder, initial encounter
CPT/HCPCS: 29125; 99283; 73110

== ENCOUNTER 2022-03-09 02:58 | Outpatient (CLI) | payer MEDICARE, SELFPAY ==
[2022-03-09 10:24] LABS: Calculated LDL 149 mg/dL (<100); Cholesterol 221 mg/dL (<200); HDL Cholesterol 62 mg/dL (40-60); Triglyceride 51 mg/dL (<150)
[2022-03-12 12:05] LABS: 1,25-Dihydroxyvitamin D 41 pg/mL (18-78)
== END 2022-03-09 02:59 | disposition home or self-care (01) ==
LOC: LBO 02:58
PROVIDERS: PCP Nurse Practitioner; Visit Provider Nurse Practitioner
DX: E78.5 Hyperlipidemia, unspecified (principal); E55.9 Vitamin D deficiency, unspecified
CPT/HCPCS: 36415; 80061; 82652

== ENCOUNTER → 2022-04-28 11:24 | Outpatient (BNVA) | payer MEDICARE, SELFPAY | PROVIDERS: PCP Nurse Practitioner; Referring Provider Nurse Practitioner; Visit Provider Physical Therapy Assistant | DX: Z86.010 Personal history of colon polyps (principal); Z12.11 Encounter for screening for malignant neoplasm of colon ==

== ENCOUNTER → 2022-04-29 00:46 | Outpatient (CLI) | payer MEDICARE, SELFPAY ==
--- NOTE | 2022-04-29 07:00 | DI.DEXA_ITS ---
Exam(s) XR DEXA BONE DENSITY W/WO DEE EXAM: XR DEXA BONE DENSITY W/WO DEE CLINICAL HISTORY: screening for osteoporosis, comp fx thoracic vertebra,s22.00a TECHNIQUE: COMPARISON: CR XR DEXA BONE DENSITY W/WO DEE from 12/03/2019 FINDINGS: Lateral Spine Image: Stable L3 compression deformity. Left hip: Total T-Score: -3.3. This compares to -3.4 on the prior examination. Total Z-Score: -1.5 T- and Z-scores: Findings consistent with osteoporosis. Lumbar Spine: Total T-Score: -4.0. This compares to -3.7 on the prior examination. This is a decrease in the bone mineral density. Total Z-Score: -1.6 T- and Z-scores: Findings consistent with osteoporosis. IMPRESSION: Findings of osteoporosis.
== END ==
PROVIDERS: PCP Nurse Practitioner; Visit Provider Nurse Practitioner
DX: M81.0 Age-related osteoporosis without current pathological fracture (principal); S22.060D Wedge compression fracture of T7-T8 vertebra, subsequent encounter for fracture with routine healing
CPT/HCPCS: 77080

== ENCOUNTER 2022-05-09 07:45 | Day surgery (SDC) | payer MEDICARE, SELFPAY ==
--- NOTE | 2022-05-09 06:48 | COLE_ITS ---
Colonoscopy Report Date of procedure: 05/09/22 Pre-op diagnosis general: Colon Cancer Screening/ Hx of adenomatous polyp Post-op diagnosis procedure note: same Procedure: Colonoscopy with polypectomy Surgeon: Aura Lopez Anesthesia Type: General:No Airway Estimated blood loss (mL): 3 Pathology: other (sigmoid polyps and rectal polyps) Complications: None Disposition: same day Indications: The patient is here for Colonoscopy pre-op. Her last screening was in 2014 and was remarkable for tubular adenomatous polyps x 2 and hyperplastic polyp x 1. She has no family history of colon cancer. She has not had any bowel habit changes. -Discussed colonoscopy bowel prep as well as the procedure. Discussed possible complications of the procedure to include bleeding, pain, perforation, missed small lesion/polyp, sore throat, aspiration and adverse reaction to the medicati ons. Questions were answered to patient?s satisfaction. No guarantees were implied or given.? Prep: Miralax/Dulcolax Procedure Start Time: 09:00 Procedure End Time: 09:23 Retraction Time: 13 minutes Findings: multiple small sessile polyps Procedure Description: After informed consent was obtained the patient was taken to the procedure room and placed in a left decubitous position. Monitors were applied and a time out was done. The patients name, date of , procedure, allergies to medications and metal in their body was reviewed. The patient was then sedated. Once sedated and comfortable a rectal exam was done. External exam was normal. Internal exam revealed a normal sphincter tone and no palpable masses. The scope was then introduced and retro-flexed. No internal hemorrhoids, polyps or masses were identified on retro-flexion. The scope was then advanced to the cecum without difficulty. The ileocecal vlave and appendiceal orifice were identified. The prep was adequate. The scope was then slowly retracted over 13 minutes back into the rectum. Polyps were removed with cold forceps in the sigmoid colon x7 and rectum x2. There was no diverticulosis noted. The scope was removed and the patient was woken up and taken back to Same day surgery in stable condition. The patient tolerated the procedure well and there were no immediate complications. Follow up recommendations to follow once I have the pathology results
--- NOTE | 2022-05-09 06:49 | PDOC.DSDIS_ITS ---
Discharge Plan Disposition Patient Disposition: HOME Condition: Good Discharge Details Reason For Visit: colonoscopy Attending Provider: Aura Lopez Primary Care Provider: Lacy Silva Home Meds and New Rx's Prescriptions: Continued New Chapter Bone Health 1 cap PO DAILY Osteo Bone Health 1 cap PO DAILY SeroPlus 1 cap PO DAILY ascorbic acid (vitamin C) 1,000 MG tablet 1,000 mg PO DAILY One-Per-Day [place]-3 1 EACH capsule,delayed release(DR/EC) 600 - 1,200 mg PO as directed Rx Instructions: 2 cap am, 1 cap pm prn cholecalciferol (vitamin D3) 25 mcg (1,000 unit) capsule 5,000 unit PO DAILY Label Comments: cyanocobalamin (vitamin B-12) [Vitamin B-12] 1,000 mcg tablet 2,000 mcg PO DAILY ibuprofen [Advil] 200 mg Tablet 200 mg PO Q6H PRN Discontinued bisacodyl [Dulcolax (bisacodyl)] 5 mg tablet,delayed release (DR/EC) 5 mg PO ONCE Qty: 4 0RF Rx Instructions: Take according to provider's instructions for colonoscopy prep. polyethylene glycol 3350 17 gram/dose powder 17 g PO ONCE Qty: 238 0RF Rx Instructions: To be taken as directed by prescriber's office for colonoscopy prep. Discharge Instructions Instructions: Colorectal Polyps (DC) Additional Instructions: Findings: multiple small polyps Follow up: will depend on the pathology results Please call if you develop: fevers >101.5 Nausea or Vomiting Abdominal pain that is not transient Rectal bleeding that is more then a tbsp A hard abdomen and inability to pass gas DAY SURGERY UNIT POST ENDOSCOPY INSTRUCTIONS Instructions for everyone who is given Anesthesia: For your safety, please do the following for the next 24 Hours: a. Do not drive or operate dangerous equipment b. Do not drink alcohol beverages or use any recreational drugs for the first 24 hours or while taking pain medications. The medications in your body may have a reaction that can be dangerous. c. Do not make any important decisions or sign any important papers 1. Generally there are no restrictions on your activity after a day or so has gone by, but you may feel a bit fatigued for a few days. 2. After you arrive home you may have a light meal and return to a normal diet as you can tolerate it without feeling sick to your stomach. 3. After surgery, you may feel pain or discomfort. This should be only transient, but if it persists please contact your doctor. 4. If there are any questions regarding the findings of your procedure, please feel free to contact your doctor. 6. If you are unable to contact your doctor with a problem, contact the hospital at [phone]. 7. Continue all your regular medications unless directed otherwise. I understand the above instructions and have no questions. Signature of Patient or Responsible Adult Escort Date/Time Name of Responsible Adult Escort Signature of Nurse Date/Time Activity:: Activity as Tolerated Diet:: As Tolerated Discharge Orders Discharge Orders: Discharge Order (Routine); Ordered 05/09/22 Ordered By: Aura Lopez
[2022-05-09 08:02] VITALS: BP 143/80; PULSE 76; RESP 19; TEMP 36.6; O2SAT 98
[2022-05-09] MEDS: Lactated Ringers 1,000 ML 80 ML IV (08:22)
--- NOTE | 2022-05-09 08:47 | W.ANESPRE ---
General Info Date of Service Date Performed: 05/09/22 Height: 5 ft 6 in Weight: 61 kg Body Mass Index (BMI): 21.7 Surgical Procedure: Operation Date: 05/09/22 08:50 Proposed Procedure Side Surgeon christina Lopez MD Meds Allergies and Home Medications Allergies Allergy/AdvReac Type Severity Reaction Status Date / Time gluten Allergy Severe SWELLING Verified 05/09/22 08:12 lactose AdvReac Unknown INTOLERANT Verified 05/09/22 08:12 EGG WHITE AdvReac Unknown PUTS HER Uncoded 05/09/22 08:12 TO SLEEP Home Medication Medication Instructions Recorded ascorbic acid (vitamin C) 1,000 mg 1,000 mg PO DAILY 07/06/13 tablet omega-3 fatty acids-fish oil 684 600 - 1,200 mg PO as directed 11/19/15 mg-1,200 mg capsule,delayed release (One-Per-Day [place]-3) New Chapter Bone Health 1 cap PO DAILY 10/19/20 Osteo Bone Health 1 cap PO DAILY 10/19/20 SeroPlus 1 cap PO DAILY 10/19/20 cholecalciferol (vitamin D3) 25 5,000 unit PO DAILY 10/19/20 mcg (1,000 unit) capsule cyanocobalamin (vitamin B-12) 2,000 mcg PO DAILY 10/19/20 1,000 mcg tablet (Vitamin B-12) ibuprofen 200 mg tablet (Advil) 200 mg PO Q6H PRN 08/27/21 bisacodyl 5 mg tablet,delayed 5 mg PO ONCE #4 tabs 04/28/22 release (Dulcolax (bisacodyl)) polyethylene glycol 3350 17 17 g PO ONCE #238 grams 04/28/22 gram/dose oral powder Current Visit Medications: Current Medications Generic Name Dose Route Start Last Admin Trade Name Freq PRN Reason Stop Dose Admin Hyoscyamine Sulfate 0.125 mg 05/09/22 06:50 Hyoscyamine 0.125 Mg Sl/Oral/Chew SL DIRECTED PRN Ringer's Solution 1,000 mls @ 80 mls/hr 05/09/22 06:00 05/09/22 08:22 IV 06/05/22 23:59 80 mls/hr INFUSION GAVIOTA Administration IV Miscellaneous Supplies 1 each 05/09/22 06:00 Iv Access IV 06/05/22 23:59 DIRECTED GAVIOTA Ondansetron HCl 4 mg 05/09/22 06:50 Ondansetron 4 Mg/2 Ml Vial IVP Q4H PRN PRN Nausea / Vomiting Sodium Chloride 0 ml 05/09/22 06:00 Normal Saline Flush 10 Ml Syr IV 06/05/22 23:59 PRN PRN Sodium Chloride 0 ml 05/09/22 06:00 Normal Saline 10 Ml Vial IJ 06/05/22 23:59 DIRECTED PRN Sterile Water 0 ml 05/09/22 06:00 Water,Injection,Sterile 10 Ml Vial IJ 06/05/22 23:59 DIRECTED PRN PFSH Active Problems Active Problems: Problem Status Onset Code Screening for colon cancer Z12.11 Osteoporosis M81.0 Medical History Medical History Acute thoracic myofascial strain as above Atrophic vaginitis Back pain with radiation Chronic low back pain 2021- exercise helps Compression fracture of body of thoracic vertebra and lumbar Compression fracture of lumbar vertebra with routine healing (11/23/15) Depressive disorder Disorder of vitamin B12 (07/09/13) History of Graves' disease (12/05/17) no longer has per pt/ History of vertebral compression fracture (12/05/17) Hyperlipidemia Osteoporosis (12/05/17) Upper back pain 2021 pilates helping Surgical History Surgical History History of bilateral ligation of fallopian tubes Ligation of fallopian tube (~1975) Tobacco Smoking/Tobacco Use Status: Never Passive smoking exposure: Yes Second hand exposure: Yes Alcohol Alcohol Intake: current Alcohol intake frequency: a few times a week Alcohol type: hard liquor Substance Use Substance use: Never Substance use type: does not use Vital Signs and Lab Results Vital Signs Most Recent Vital Signs in EMR: Most Recent Vital Signs Temp Pulse Resp BP Pulse Ox 36.6 C 76 19 143/80 H 98 05/09/22 08:02 05/09/22 08:02 05/09/22 08:02 05/09/22 08:02 05/09/22 08:02 Lab Results Blood Type / Crossmatch: No Data to Display Complete Blood Count: No Data to Display Complete Metabolic Panel: No Data to Display Liver Function Panel: No Data to Display Coagulation Panel: No Data to Display Cardiac Panel: No Data to Display Arterial Blood Gas: No Data to Display Venous Blood Gas: No Data to Display Pancreas Panel: No Data to Display Thyroid Panel: No Data to Display Infectious Disease: No Data to Display Blood Cultures: No Data to Display Toxicology Panel: No Data to Display Anesthesia Assessment and Plan Anesthesia History Personal History: No History of Anesthesia Complications Family History: No Family History of Anesthesia Complications Exercise Tolerance Exercise Tolerance: Metabolic Equivalents>4 Pertinent Negatives Pertinent Negatives: No Symptoms of GERD Cardiac & Pulmonary Exam Cardiac Exam: Normal S1/S2 Heart Sounds Pulmonary Exam: Clear Bilateral Breath Sounds Implantable Cardiac Device Does patient have a Pacemaker or an ICD?: No Airway Exam Known Difficult Airway: No Mallampati Class: 1 Mouth Opening: Normal (> 3cm) Thyromental Distance: Greater than 3 cm Neck Range of Motion: Full ROM Neck Circumference: Normal Teeth Condition: Normal Dentition ASA Classification ASA Score: ASA 2 Emergency Case?: No NPO Status NPO Status: NPO Clears >2 hours, Solids >8 hours Anesthesia Plan Resuscitation Status: Full Code Anesthesia Technique: General Anesthesia Airway Planned: Natural Airway Monitors Used: Standard Monitors
[2022-05-09 08:49] VITALS: BMI 21.7
--- NOTE | 2022-05-09 09:17 | BOWEL_PTH ---
PATIENT: Alice Noguera LOC: [facility] U#:[id number] AGE/SX: 71/F ROOM: RE05/09/[address]: Aura Lopez MD : 1950 BED: DIS: 05/09/2022 SPEC #: [id number] RECD: 05/09/22 12:09 STATUS: JOEY RE #: [id number] JACIEL: 05/09/22 09:[address]: Aura Lopez DEPT: Surgical Specimen RECD BY: Katie Lynn ENTERED: 05/09/22 12:10 SP TYPE: Bowel OTHR DR: Lacy Silva, PhD LEATHER CLEANER Tissues: 1 - BIOPSY BOWEL 2 - BIOPSY BOWEL Procedures: GROSS AND MICRO LEVEL 4 Comments: [id number]
[2022-05-09 09:30] VITALS: BP 123/77; PULSE 67; RESP 17; TEMP 36.6; O2SAT 96
[2022-05-09 10:00] VITALS: BP 123/76; PULSE 67; RESP 16; TEMP 36.3; O2SAT 97
--- NOTE | 2022-05-09 10:30 | W.ANESPOSTOP ---
Postoperative Evaluation Date, Time and Location Date Performed: 05/09/22 Time Performed: 10:30 Patient Location: Day Surgery Unit Vital Signs Most Recent Imported Vital Signs: Most Recent Vital Signs Temp Pulse Resp BP Pulse Ox 36.3 C L 67 16 123/76 97 05/09/22 10:00 05/09/22 10:00 05/09/22 10:00 05/09/22 10:00 05/09/22 10:00 Pain Score Most Recent Pain Score: Most Recent Pain Score Pain Level 0 05/09/22 10:00 Assessment Mental Status: Awake (Alert & Oriented to Patient Baseline) Airway and Respiratory Function: Patent airway with normal (patient baseline) respiratory exam Cardiovascular Function: Hemodynamically Stable Hydration Status: Adequately Hydrated Nausea & Vomiting: No Nausea or Vomiting Pain: Pt. Denies Any Pain Peripheral Nerve Block: Patient did not receive a nerve block
== END 2022-05-09 10:43 | disposition home or self-care (01) ==
PROVIDERS: PCP Nurse Practitioner; Visit Provider Surgery
PROC: 0DJD8ZZ Inspection of Lower Intestinal Tract, Via Natural or Artificial Opening Endoscopic (ICD-10-PCS; CPT 45378; principal; 2022-05-09 08:45)
DX: Z12.11 Encounter for screening for malignant neoplasm of colon (principal); Z86.010 Personal history of colon polyps; K63.5 Polyp of colon
CPT/HCPCS: 45380; 88305

== ENCOUNTER 2023-02-21 10:21 | Emergency (ER) | payer MEDICARE, SELFPAY ==
[2023-02-21 10:23] VITALS: BP 159/90; PULSE 111; RESP 18; TEMP 36.8; O2SAT 95
--- NOTE | 2023-02-21 10:23 | ED.GENADUL_ITS ---
Discharge Plan Disposition Patient Disposition: Home Condition: Stable Discharge Details Clinical Impression: Acute exacerbation of chronic low back pain, History of osteoporosis, History of vertebral compression fracture Primary Care Provider: Lala Scales ED Provider: Linda Dumas Home Meds and New Rx's Prescriptions: Continued New Chapter Bone Health 1 cap PO DAILY Osteo Bone Health 1 cap PO DAILY SeroPlus 1 cap PO DAILY One-Per-Day [place]-3 1 EACH capsule,delayed release(DR/EC) 600 - 1,200 mg PO as directed Rx Instructions: 2 cap am, 1 cap pm prn cyanocobalamin (vitamin B-12) [Vitamin B-12] 1,000 mcg tablet 1,000 mcg PO DAILY cholecalciferol (vitamin D3) 25 mcg (1,000 unit) capsule 1,000 unit PO DAILY Patient Comments: boron citrate 3 mg tablet 3 mg PO DAILY strontium tablet 750 mg PO DAILY zinc 50 mg tablet 50 mg PO .QOD copper gluconate 2 mg capsule 2 mg PO .QOD Qty: 1 0RF Enzyme digestive support PO DAILY Mood Support PO DAILY Chelated Magnanese 20 mg PO alendronate [Fosamax] 70 mg tablet 70 mg PO QWEEK Qty: 13 4RF ibuprofen [Advil] 200 mg Tablet 200 mg PO Q6H PRN Discharge Instructions Instructions: Vertebral Compression Fracture (ED), Chronic Back Pain (DC) Additional Instructions: Your CT imaging today showed no evidence of acute fracture Apply ice to the affected area several times daily for 20 minutes at a time. Alternate tylenol and motrin as needed and directed for pain. You have been placed on care management's list to arrange for a follow-up ap pointment with your primary care doctor's office for reevaluation in the next 1 to 2 weeks. Return to the emergency department with any worsening or new concerning symptoms such as worsening pain, loss of bowel or bladder function, difficulty walking or any other concerns. Discharge Data Discharge Physician: Linda Dumas Medical Decision Making 1030 -- 72-year-old female with a history of osteoporosis and multiple thoracic and lumbar vertebral compression fractures, Graves' disease who presents with persistent low back pain for the past 5 weeks. No cauda equina symptoms. Her heart rate and blood pressure is elevated. We will recheck. She otherwise appears comfortable and nontoxic and is reading a book comfortably on the stretcher. Her back appears normal to inspection but does have tenderness overlying the distal midline lumbar spine and midline sacrum. There is no evidence of obvious trauma or cellulitis. She has no focal deficits on exam. History and presentation does not appear consistent with cauda equina syndrome or genitourinary etiology. Concern for new compression fracture versus muscle strain. Will obtain CT lumbar spine and sacrum coccyx without. She is declining medication for pain. 1330 --delay in radiology report. High number of imaging studies. Patient reassessed and she had declined any medication for pain. Imaging reviewed and noted stable compression fractures of L1, L3 and L4 with no acute fractures. Discussed with patient that my suspicion for disc herniation is low but to continue to monitor her symptoms for any worsening or progression as she may need repeat imaging including MRI. She will not be engaging in any Pilates for the next 2 weeks. Patient placed on care management list to arrange for follow- up appointment with [facility] for reevaluation. Patient declines any medication prescriptions including muscle relaxers or steroids. Usual and customary return precautions given prior to discharge. Medical Records Medical records reviewed: Yes I reviewed the patient's medical records. Medical records narrative: 04/29/22 XR DEXA BONE DENSITY W/WO DEE CLINICAL HISTORY:? screening for osteoporosis, comp fx thoracic vertebra,s22.00a TECHNIQUE:? COMPARISON:? CR XR DEXA BONE DENSITY W/WO DEE from 12/03/2019 FINDINGS: Lateral Spine Image: Stable L3 compression deformity.? Left hip: Total T-Score: -3.3. This compares to -3.4 on the prior examination. Total Z-Score: -1.5? T- and Z-scores: Findings consistent with osteoporosis.? Lumbar Spine: Total T-Score: -4.0. This compares to -3.7 on the prior examination.? This is a decrease in the bone mineral density. Total Z-Score: -1.6 T- and Z-scores: Findings consistent with osteoporosis.? IMPRESSION: Findings of osteoporosis. ? 08/27/21 CT THORACIC ? LUMBAR SPINE WO CLINICAL HISTORY:? Pain, hx of osteoporosis, compression fracture TECHNIQUE:? COMPARISON:? CR XR lumbar spine complete from 05/21/2019 CR XR DEXA BONE DENSITY W/WO DEE from 12/03/2019 CR XR DEXA BONE DENSITY W/WO DEE from 12/03/2019 CR XR THORACIC SPINE COMPLETE from 09/17/2020 CR XR THORACIC SPINE COMPLETE from 09/17/2020 CR,XR XR THORACIC SPINE COMPLETE from 08/25/2021 CR,XR XR THORACIC SPINE COMPLETE from 08/25/2021 FINDINGS: CT examination of thoracic lumbar spine was performed utilizing multi slice acquisition reconstruction.? Visualized portions of the lungs appear clear.? There appear to be multiple hepatic cysts and benign hepatic calcifications.? Visualized portions the spleen are unremarkable.? Visualized portions of right kidney unremarkable.? There is nonobstructing left renal calcification. Abdominal aorta is diameter. There are vertebral endplate compression fractures 1, L3, and L4 with slight loss of height anteriorly of L1 vertebral body.? There are mild anterior vertebral compression fractures of T 7, T8 and T9 which were probably present on prior examination of August 2020. no new compression fracture seen.? No deformity of the spinal.? No paraspinal soft tissue. IMPRESSION: Multiple old compression fractures of thoracic and lumbar spine as described above.? No evidence of acute process. Imaging Data Radiologic Study: Radiologist's impression: CT LUMBAR SPINE ? SI JOINTS WO CLINICAL HISTORY:? h/o osteoporosis,worsening mid L/S spine pain. ? TECHNIQUE:? Imaging Protocol: Axial computed tomography images with coronal and sagittal reformatted images were created and reviewed COMPARISON:? CT CT THORACIC ? LUMBAR SPINE WO from 08/27/2021? FINDINGS: Bones:? The last intervertebral disc space is designated the L5/S1 level for the numbering purpose of this examination. Stable mild compression of the anterosuperior endplate of L1 with Schmorl's node.? New line stable mild arm moderate compression fracture of the central portion of the L3 vertebral body. Stable moderate compression of the central portion of the L4 vertebral body. No new compression fractures.? No sacral fracture. Stable mild degenerative levo scoliosis. Mild disc bulging from L2-3 through L5-S1.? Mild central canal stenosis at L4-5. The bones appear osteopenic. Degenerative changes at the sacroiliac joints, greater on the left.? No rosea is. Soft Tissues:? The paraspinal soft tissues are unremarkable. IMPRESSION: Stable compression fractures of L1, L3 and L4. No acute fractures. HPI General Mode of arrival: ambulatory . Date/Time Provider Initiated Documentation: 02/21/23 10:22 . Limitations to Documentation: no limitations . Information obtained by: patient . HPI Narrative: Patient is a 72-year-old female with a history of osteoporosis and multiple thoracic and lumbar vertebral compression fractures in 2020 presents for worsening of her midline lower back pain over the past several weeks. Patient states her pain has been managed well since the summer and she has been doing her regular Pilates once a week and seeing her physiotherapist once monthly. She denies any increase in her treatment recently. She states she was told by her gmat instructor yesterday and her physiotherapist today that she should be evaluated with possibly a CT scan to rule out a new possible compression fracture due to her increase in pain. She states over the last few weeks she quintero s noticed a slight increase in her midline lower back and sacral pain. 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 She states she can lift up to 50 pounds and supplies at a time. She is followed at [facility] for her osteoporosis and receives Fosamax once weekly but states she is looking into seeing a noxious weeds and pest inspector to help with diet options for her osteoporosis. She does not like to take medications and states she only took 1 Advil last week for her pain. She states her pain is 4/10 at its worst and is currently 3/10. She denies any fever, abdominal pain, bowel or bladder incontinence, saddle anesthesia, leg weakness or numbness. Related Data Home Medications Medication Instructions Recorded Confirmed omega-3 fatty acids-fish oil 916 600 - 1,200 mg PO as directed 11/19/15 05/09/22 mg-1,200 mg capsule,delayed release (One-Per-Day [place]-3) [facility] Chapter Bone Health 1 cap PO DAILY 10/19/20 02/21/23 Osteo Bone Health 1 cap PO DAILY 10/19/20 02/21/23 SeroPlus 1 cap PO DAILY 10/19/20 02/21/23 ibuprofen 200 mg tablet (Advil) 200 mg PO Q6H PRN 08/27/21 02/21/23 Chelated Magnanese 20 mg PO 06/15/22 Enzyme digestive support PO DAILY 06/15/22 Mood Support PO DAILY 06/15/22 boron citrate 3 mg tablet 3 mg PO DAILY 06/15/22 02/21/23 cholecalciferol (vitamin D3) 25 1,000 unit PO DAILY 06/15/22 02/21/23 mcg (1,000 unit) capsule copper gluconate 2 mg capsule 2 mg PO .QOD #1 cap 06/15/22 02/21/23 cyanocobalamin (vitamin B-12) 1,000 mcg PO DAILY 06/15/22 02/21/23 1,000 mcg tablet (Vitamin B-12) strontium 750 mg PO DAILY 06/15/22 02/21/23 zinc 50 mg tablet 50 mg PO .QOD 06/15/22 02/21/23 alendronate 70 mg tablet (Fosamax) 70 mg PO QWEEK #13 tabs 07/05/22 02/21/23 Previous Rx's Medication Instructions Recorded copper gluconate 2 mg capsule 2 mg PO .QOD #1 cap 06/15/22 alendronate 70 mg tablet (Fosamax) 70 mg PO QWEEK #13 tabs 07/05/22 Allergies Allergy/AdvReac Type Severity Reaction Status Date / Time gluten Allergy Severe SWELLING Verified 02/21/23 10:29 lactose AdvReac Unknown INTOLERANT Verified 02/21/23 10:29 EGG WHITE AdvReac Unknown PUTS HER Uncoded 02/21/23 10:29 TO SLEEP General Stated Complaint: Nk/Back Pain EILEEN: 3 Review of Systems All systems reviewed & are unremarkable except as noted in HPI and below Constitutional Constitutional: Reports as per HPI, Denies chills and Denies fever(s) Eyes Eyes: Denies blurry vision ENT Ears, Nose, Mouth, and Throat: Denies dizziness, Denies sore throat and Denies throat swelling Cardiovascular Cardiovascular: Denies chest pain and Denies dyspnea Respiratory Respiratory: Denies cough and Denies dyspnea Gastrointestinal Gastrointestinal: Denies abdominal pain, Denies diarrhea and Denies vomiting Genitourinary Genitourinary: Denies hematuria and Denies dysuria Musculoskeletal Musculoskeletal: Reports back pain and Denies numbness Integumentary/Breasts Skin/Breast: Denies lesions and Denies rash Neurologic Neurologic: Denies dizziness, Denies localized weakness and Denies numbness Allergic/Immunologic Allergic/Immunologic: Denies throat swelling PFSH All Active Problems (Updated 02/21/23 @ 13:43 by Linda Dumas DO) Acute exacerbation of chronic low back pain (Acute) History of osteoporosis (Acute) History of vertebral compression fracture (Acute) Hyperplastic colon polyp (Acute) Osteoporosis (Chronic) DEXA 2021 Medical History (Updated 02/21/23 @ 13:43 by Linda Dumas DO) Acute thoracic myofascial strain as above Atrophic vaginitis Back pain with radiation Chronic low back pain 2021- exercise helps Compression fracture of body of thoracic vertebra and lumbar Compression fracture of lumbar vertebra with routine healing (11/23/15) Depressive disorder Disorder of vitamin B12 (07/09/13) History of Graves' disease (12/05/17) no longer has per pt/ History of vertebral compression fracture (12/05/17) Hyperlipidemia Osteoporosis (12/05/17) Screening for colon cancer Upper back pain 2021 pilates helping Surgical History (Updated 05/13/22 @ 11:39 by Serenity Molina RN) History of bilateral ligation of fallopian tubes History of colonoscopy (~04/2022) Ligation of fallopian tube (~1975) Family History Mother , age 44 Breast cancer Father , age 84 Heart disease Colon cancer Brother Heart disease Depression Brother Essential hypertension Depression Maternal Grandfather Depression Alcohol abuse Paternal Grandfather , in his 80s No problems noted. Maternal Grandmother , age 75 No problems noted. Paternal Grandmother , age 95 Heart disease Stroke Son No problems noted. Daughter Melanoma Daughter No problems noted. Daughter Depression Alcohol abuse Social History Smoking/Tobacco Use Status: Never Second Hand Exposure: Yes Smoking risk assessment performed?: Yes Alcohol Intake: current Alcohol Intake frequency: a few times a week Alcohol type: hard liquor Drug use: Never Substance use type: does not use Caregiver/Support person: No Household members: none Housing: house Communication Needs: None Do you need help understanding health information?: Never Pets and animals: Yes Pets and animals: cat(s) and dog(s) Sexually active: No Do you think of yourself as: straight/heterosexual Current gender identity: female What is your relationship status?: How often do you talk on the phone with friends or family?: three or more times per week How often do you get together with friends or relatives?: twice per week How often do you attend anabaptist or methodist services?: decline to answer Do you belong to any clubs or organized social groups?: no Panel score (0-1 are the most socially isolated patients): 1 What type of physical activity do you participate in: walking and other Deta ils: Pilates, snowshoeing gardening Duration: 30-45 minutes/day Frequency: daily Shawanda/Rastafarian: Scientologist Special shawanda needs: No Seatbelt use: always Helmet use: Yes Helmet use: always Drive intox or ride w/intox courtesy van driver: No Do you feel safe at home: Yes Do you feel safe in your relationship?: Yes Exam Const General: cooperative, healthy appearing and no acute distress Orientation: alert, awake and oriented x3 HENMT Head: normal to inspection Face and sinus: normal facial exam Eyes General: appearance normal, both eyes and all related structures Pupils: PERRL EOM: EOM intact bilaterally Neck Neck: normal visual inspection and No submandibular swelling Lymphatic: no lymphadenopathy noted Chest Chest: normal inspection of the chest and no tenderness Resp Effort & Inspection: normal respiratory effort and able to speak in complete sentences Auscultation: clear to auscultation bilaterally Cardio Rate: tachycardic Rhythm: regular rhythm GI Inspection: normal to inspection Palpation: soft, not firm, not rigid and nontender Auscultation: hypoactive bowel sounds Back/Spine/Pelvis Thoracic/Lumbar Spine: thoracic and lumbar spine normal to inspection, straight leg raise negative bilaterally, No paraspinal tenderness, No thoracic spinal tenderness and lumbar spinal tenderness Sacrum: no ecchymosis, no erythema and tenderness midline Skin General skin exam: no rashes or lesions noted Neuro General: patient alert, patient awake and patient oriented x3 Cognition: normal cognition Speech: speech normal Motor: muscle tone normal throughout and strength 5/5 throughout Sensory Exam: no sensory deficits noted DTR's: Rt Patellar: 1+, Lt Patellar: 1+, Rt Ankle: 1+ and Lt Ankle: 1+ Plantar Reflexes: Equivocal: bilateral (Negative babinski b/l ) Extrem General: normal to inspection, full ROM, capillary refill normal, no calf tenderness bilaterally and no edema Other: B/L DP/PT pulses intact. Psych Appearance: grossly normal Mental Status: mental status grossly normal Speech and Movement: speech and movement normal Affect: normal affect
--- NOTE | 2023-02-21 11:25 | DI.CT_ITS ---
Exam(s) CT LUMBAR SPINE SI JOINTS WO EXAM: CT LUMBAR SPINE SI JOINTS WO CLINICAL HISTORY: h/o osteoporosis,worsening mid L/S spine pain. TECHNIQUE: Imaging Protocol: Axial computed tomography images with coronal and sagittal reformatted images were created and reviewed COMPARISON: CT CT THORACIC LUMBAR SPINE WO from 08/27/2021 FINDINGS: Bones: The last intervertebral disc space is designated the L5/S1 level for the numbering purpose of this examination. Stable mild compression of the anterosuperior endplate of L1 with Schmorl's node. New line stable mi ld arm moderate compression fracture of the central portion of the L3 vertebral body. Stable moderate compression of the central portion of the L4 vertebral body. No new compression fractures. No sacral fracture. Stable mild degenerative levo scoliosis. Mild disc bulging from L2-3 through L5-S1. Mild central canal stenosis at L4-5. The bones appear osteopenic. Degenerative changes at the sacroiliac joints, greater on the left. No rosea is. Soft Tissues: The paraspinal soft tissues are unremarkable. IMPRESSION: Stable compression fractures of L1, L3 and L4. No acute fractures. RADIATION DOSE DELIVERED: 482.84mGy.cm Total DLP DATA REPOSITORY: All CT scans at this facility are submitted to the National Radiology Data Registry (NRDR) Dose Index Registry (DIR) with the [employer] (A[employer]). RADIATION OPTIMIZATION: All CT scans at this facility use at least one of these dose optimization te chniques: automated exposure control; mA and/or kV adjustment per patient size (includes targeted exa ms where dose is matched to clinical indication); or iterative reconstruction.
[2023-02-21 13:49] VITALS: BP 153/79; PULSE 73; RESP 16
== END 2023-02-21 13:50 | disposition home or self-care (01) ==
PROVIDERS: Emergency Provider Physician Assistant; PCP Nurse Practitioner Family
DX: M54.50 Low back pain, unspecified (principal); G89.29 Other chronic pain; M81.0 Age-related osteoporosis without current pathological fracture; Z87.81 Personal history of (healed) traumatic fracture
CPT/HCPCS: 99284; 72131; 99283

== ENCOUNTER 2023-06-13 03:28 | Outpatient (CLI) | payer MEDICARE, SELFPAY ==
[2023-06-13 09:54] LABS: Hemoglobin A1C 5.4 % (<5.7)
[2023-06-13 10:03] LABS: Anion Gap 6.5 mmol/L (3-11); BUN 17 mg/dL (7-18); CO2 28.5 mmol/L (21.0-32.0); CREATININE 0.8 mg/dL (0.55-1.02); Calcium 8.7 mg/dL (8.5-10.1); Calculated LDL 122 mg/dL (<100); Chloride 108 mmol/L (98-107); Cholesterol 197 mg/dL (<200); Estimated GFR 76.79 (mL/min/1.73m2); Glucose 91 mg/dL (74-106); HDL Cholesterol 65 mg/dL (40-60); Sodium 143 mmol/L (136-145); TSH (W/Ref FT4) 0.83 uIU/mL (0.36-3.74); Triglyceride 53 mg/dL (<150)
[2023-06-13 10:14] LABS: Vitamin D 25 Total 70.6 ng/mL (30-100)
[2023-06-14 10:12] LABS: Hepatitis C Ab w Rflx HCV PCR Negative (Negative)
== END 2023-06-13 03:29 | disposition home or self-care (01) ==
LOC: LBO 03:28
PROVIDERS: PCP Nurse Practitioner Family; Visit Provider Nurse Practitioner Family
DX: E78.5 Hyperlipidemia, unspecified (principal); R73.01 Impaired fasting glucose; E05.00 Thyrotoxicosis with diffuse goiter without thyrotoxic crisis or storm; M81.0 Age-related osteoporosis without current pathological fracture; Z11.59 Encounter for screening for other viral diseases; R03.0 Elevated blood-pressure reading, without diagnosis of hypertension
CPT/HCPCS: 36415; 80048; 80061; 82306; 86803; 83036; 84443

== ENCOUNTER 2023-06-13 09:04 | Outpatient (CLI) | payer MEDICARE, SELFPAY ==
--- NOTE | 2023-06-13 07:15 | DI.MAMMO_ITS ---
Exam(s) MAMMO SCREENING EXAM: MAMMO SCREENING CLINICAL HISTORY: screening,Z12.39. TECHNIQUE: Bilateral full field digital CC and MLO mammographic images were obtained with 3D tomosyn thesis and utilizing computer aided detection (CAD). COMPARISON: Prior mammograms dating back to 2016 were reviewed. FINDINGS: There has been no significant change in the appearance and distribution of the fibroglandular tissue. Left breast nodules remain unchanged. These nodular densities are in the medial aspect of the breast , both 2 cm and 7 0.5 cm in from the nipple. There are no new spiculated masses nor malignant appearing microcalcification groups. There is no significant architectural distortion nor skin thickening-retraction. IMPRESSION: No radiographic evidence of malignancy. Stable benign-appearing findings. BI-RADS Category 2 - Benign Findings Breast Density - Category C - Heterogeneously dense Breast density Category C or D implies that the patient has dense breast tissue. Dense breast tissue can make it harder to find cancer on a mammogram. Dense breast tissue is also associated with an incr eased risk of breast cancer. This information about the result of the mammogram report was provided to the patient to raise their awareness. Use this report when you speak with the patient about their risks for breast cancer, which includes their family history. At that time, you may recommend additional screening tests (Ultrasoun d or MRI) as these tests may add significant information. A negative radiographic report should not delay biopsy if a dominant or clinically suspicious mass is present. Up to ten percent of cancers are not identified on mammography. A negative report may reinforce clinical impression. Adenosis and dense breasts may obscure an underlying neoplasm. False positive reports average 6 to 10%. Patient will receive a letter notifying them of these results.
== END 2023-06-13 09:24 ==
LOC: DI 09:04
PROVIDERS: PCP Nurse Practitioner Family; Visit Provider Nurse Practitioner Family
DX: Z12.31 Encounter for screening mammogram for malignant neoplasm of breast (principal)
CPT/HCPCS: 77063; 77067

== ENCOUNTER 2024-08-16 02:39 | Outpatient (CLI) | payer MEDICARE, SELFPAY ==
[2024-08-16 10:51] LABS: BUN 17 mg/dL (7-18); CO2 29.1 mmol/L (21.0-32.0); CREATININE 0.9 mg/dL (0.55-1.02); Calcium 9.1 mg/dL (8.5-10.1); Chloride 108 mmol/L (98-107); Estimated GFR 66.26 (mL/min/1.73m2); Glucose 73 mg/dL (74-106); TSH (W/Ref FT4) 0.57 uIU/mL (0.36-3.74)
[2024-08-16 10:57] LABS: Anion Gap 6.9 mmol/L (3-11); Potassium 3.7 mmol/L (3.5-5.1); Sodium 144 mmol/L (136-145)
[2024-08-19 10:18] LABS: HBs Antibody, Quant <3.1 mIU/mL (See Note); Hep B Surface Ab Negative (See Note); Hepatitis B Core Antibody Negative (Negative); Hepatitis B Surface Antigen Negative (Negative)
[2024-08-19 10:24] LABS: HIV-1/2 Ag & Ab Screen Negative (Negative)
== END 2024-08-16 02:40 | disposition home or self-care (01) ==
LOC: LOS 02:40
PROVIDERS: PCP Nurse Practitioner Family; Visit Provider Nurse Practitioner Family
DX: M81.0 Age-related osteoporosis without current pathological fracture (principal); Z86.39 Personal history of other endocrine, nutritional and metabolic disease; Z11.59 Encounter for screening for other viral diseases; Z11.4 Encounter for screening for human immunodeficiency virus [HIV]
CPT/HCPCS: 36415; 80048; 86704; 86706; 87340; 87389; 84443

== ENCOUNTER 2025-01-23 01:45 | Outpatient (CLI) | payer MEDICARE, SELFPAY ==
--- NOTE | 2025-01-23 07:45 | DI.DEXA_ITS ---
Exam(s) XR DEXA BONE DENSITY W/WO DEE EXAM: XR DEXA BONE DENSITY W/WO DEE CLINICAL HISTORY: osteoporosis,m81.0 TECHNIQUE: [employer] C densitometer analysis of left hip, lumbar spine and left forearm. Lat eral survey image of the thoracic and lumbar spine. COMPARISON: DX DEXA BONE DENSITY WITH DEE from 11/28/2017 CR XR lumbar spine complete from 05/21/2019 CR XR DEXA BONE DENSITY W/WO DEE from 12/03/2019 CR XR DEXA BONE DENSITY W/WO DEE from 04/29/2022 FINDINGS: Lateral view of the thoracic and lumbar spine shows stable mild L1 compression fracture. Bone mineral density measurements of the lumbar spine correspond to a total T-score of -3.2, in the osteoporotic range. This represents a 13.8 percent increase from 2021 and 11.2 percent increase from 2017. Bone mineral density measurements of the left hip correspond to a total T-score of -3.0. This repre sents a 5.2 percent increase from 2021 but is not significantly changed from 2018.. The femoral neck T-score is -3.3, in the osteoporotic range. Theleft forearm bone mineral density measurements correspond to a T-score of the distal 3rd of -5.0, in the osteoporotic range. This represents an 8.5 percent decrease from 2018. The opposite forearm was analyzed in 2020. IMPRESSION: Osteoporosis of the spine, hip and forearm. Increase in bone density of the hip and spine. Decrease d bone mineral density in the left forearm.
--- NOTE | 2025-01-23 13:26 | DI.MAMMO_ITS ---
Exam(s) MAMMO SCREENING EXAM: MAMMO SCREENING CLINICAL HISTORY: screening,z12.39. TECHNIQUE: Bilateral full field digital CC and MLO mammographic images were obtained with 3D tomosyn thesis and utilizing computer aided detection (CAD). COMPARISON: Prior mammograms were reviewed. FINDINGS: No new right breast findings. In the left breast medially located nodular densities remain unchanged from prior mammograms dating b ack to 2016 There are no new spiculated masses nor malignant appearing microcalcification groups. There is no significant architectural distortion nor skin thickening-retraction. IMPRESSION: No radiographic evidence of malignancy. Stable benign findings. BI-RADS Category 2 - Benign Findings Breast Density - Category C - Heterogeneously dense Breast density Category C or D implies that the patient has dense breast tissue. Dense breast tissue can make it harder to find cancer on a mammogram. Dense breast tissue is also associated with an incr eased risk of breast cancer. This information about the result of the mammogram report was provided to the patient to raise their awareness. Use this report when you speak with the patient about their risks for breast cancer, which includes their family history. At that time, you may recommend additional screening tests (Ultrasoun d or MRI) as these tests may add significant information. A negative radiographic report should not delay biopsy if a dominant or clinically suspicious mass is present. Up to ten percent of cancers are not identified on mammography. A negative report may reinforce clinical impression. Adenosis and dense breasts may obscure an underlying neoplasm. False positive reports average 6 to 10%. Patient will receive a letter notifying them of these results.
== END 2025-01-23 02:05 ==
LOC: DI 01:45
PROVIDERS: PCP Nurse Practitioner Family; Visit Provider Nurse Practitioner Family
DX: M81.0 Age-related osteoporosis without current pathological fracture (principal); Z12.31 Encounter for screening mammogram for malignant neoplasm of breast
CPT/HCPCS: 77063; 77067; 77080